=== PATIENT | male | born 1965 | race Caucasian/White ===

== ENCOUNTER 2022-05-12 00:10 | Outpatient (REF) | payer OTHER, SELFPAY ==
[2022-05-12 00:53] LABS: Basophils Absolute Auto 0.05 K/uL (0.00-0.30); Basophils Percent Auto 0.8 % (0.0-3.0); Eosinophils Percent Auto 7.8 % (0.0-7.0); Hematocrit 43.9 % (37.0-53.0); Hemoglobin* 15.5 gm/dL (13.5-17.5); Immature Granulocytes Abs Auto 0.01 K/uL (0.00-0.30); Immature Granulocytes Pct Auto 0.2 %; Lymphocytes Absolute Auto 1.36 K/uL (0.90-2.90); Lymphocytes Percent Auto 21.2 % (20-44); Mean Corpuscular HGB Conc 35 gm/dL (32-36); Mean Corpuscular Hemoglobin 32 pg (26-34); Mean Corpuscular Volume 90 fL (80-100); Monocytes Percent Auto 10.8 % (0.0-11.0); Neutrophils Percent Auto 59.2 % (42.0-72.0); Platelet Count* 282 K/uL (140-440); RDW Coefficient of Variation % 12.7 % (11.5-15.5); Red Blood Count 4.86 m/uL (4.30-5.90); White Blood Count* 6.41 K/uL (4.50-11.00)
[2022-05-12 01:02] LABS: Slide Review Reflex No
[2022-05-13 23:55] LABS: Immunoglobulin E 62 kU/L (<=214)
[2022-05-14 01:07] LABS: Immunoglobulin A 150 mg/dL (68-408); Immunoglobulin G 1112 mg/dL (768-1632); Immunoglobulin M 67 mg/dL (35-263)
== END 2022-05-12 00:11 | disposition home or self-care (01) ==
LOC: NPINS 00:10
PROVIDERS: Visit Provider Otolaryngology
DX: Z01.818 Encounter for other preprocedural examination (principal); J32.8 Other chronic sinusitis; J30.9 Allergic rhinitis, unspecified; R09.81 Nasal congestion; F32.4 Major depressive disorder, single episode, in partial remission
CPT/HCPCS: 82784; 82785; 82787; 85025

== ENCOUNTER 2023-02-17 10:01 | Outpatient (CLI) | payer OTHER, SELFPAY | END 2023-02-17 10:02 | disposition home or self-care (01) | LOC: NFLDREF 02-18 09:10 | PROVIDERS: PCP Family Medicine; Referring Provider Family Medicine; Visit Provider Family Medicine | DX: Z00.00 Encounter for general adult medical examination without abnormal findings (principal); I10 Essential (primary) hypertension; Z12.5 Encounter for screening for malignant neoplasm of prostate; Z13.6 Encounter for screening for cardiovascular disorders | CPT/HCPCS: 80053; 80061; 84153 ==

== ENCOUNTER 2024-01-15 13:48 | Outpatient (CLI) | payer OTHER, SELFPAY | END 2024-01-15 13:49 | disposition home or self-care (01) | LOC: LKVREF 13:49 | PROVIDERS: PCP Family Medicine; Visit Provider Physician Assistant | DX: R21 Rash and other nonspecific skin eruption (principal); W57.XXXA Bitten or stung by nonvenomous insect and other nonvenomous arthropods, initial encounter | CPT/HCPCS: 86618 ==

== ENCOUNTER 2024-05-30 16:10 | Outpatient (CLI) | payer OTHER, SELFPAY | END 2024-05-30 16:11 | disposition home or self-care (01) | LOC: NFLDREF 06-01 15:01 | PROVIDERS: PCP Family Medicine; Referring Provider Family Medicine; Visit Provider Family Medicine | DX: Z00.00 Encounter for general adult medical examination without abnormal findings (principal); E11.9 Type 2 diabetes mellitus without complications; I10 Essential (primary) hypertension; M25.50 Pain in unspecified joint; R53.83 Other fatigue; Z12.5 Encounter for screening for malignant neoplasm of prostate; Z13.6 Encounter for screening for cardiovascular disorders | CPT/HCPCS: 80053; 80061; 82043; 82570; 84270; 84402; 84403; 86431; G0103 ==